=== PATIENT | female | born 1990 | race Hispanic/Latino ===

== ENCOUNTER 2020-12-16 10:34 | Inpatient (IN) | payer MEDICAID ==
[~2020-12-16] VITALS: Ht 165.1 cm; Wt 137.0 kg
[2020-12-18] MEDS ORDERED: LACTATED RINGERS 1000ML 1,000 ML IV SCH (06:00)
[2020-12-18] MEDS ORDERED: CEFAZOLIN SODIUM 1 GM VIAL IVP PRN (06:00)
[2020-12-18 06:24] LABS: HEMATOCRIT 38.3 % (36-48); MEAN CORPUSCULAR HEMOGLOBIN 27.8 pg (27.0-33.0); MEAN CORPUSCULAR HGB CONC 32.6 g/dL (32.0-36.0); MEAN CORPUSCULAR VOLUME 85.3 fL (79-99); RED BLOOD CELL COUNT(AUTO) 4.49 MIL/uL (4.00-5.50); RED CELL DISTRIBUTION WIDTH 13.9 % (11.0-15.5); WHITE BLOOD COUNT (AUTO) 12.7 K/uL (4.8-10.8)
[2020-12-18] MEDS ORDERED: CALDOLOR 800MG+NS 250ML 250 ML IV ONE (07:22)
[2020-12-18] MEDS ORDERED: OXYTOCIN 10 USP UNITS/ML ONE (07:22)
[2020-12-18] MEDS ORDERED: MORPHINE PF 100MG/10ML AMP IV ONE (07:22)
[2020-12-18] MEDS ORDERED: CEFAZOLIN SODIUM 1 GM VIAL IVP ONE (07:44)
[2020-12-18] MEDS ORDERED: PROMETHAZINE HCL 25 MG/ML 1ML AMPULE IM PRN (08:45)
[2020-12-18] MEDS ORDERED: OXYTOCIN-LR 20 UNITS/1000 ML 1,000 ML IV PRN (08:45)
[2020-12-18] MEDS ORDERED: DEXTROSE 5 %-0.45 % NACL 1,000 ML IV PRN (08:45)
[2020-12-18] MEDS ORDERED: 0.9%NACL 10ML VIAL IVP PRN (08:45)
[2020-12-18] MEDS ORDERED: MEPERIDINE-PF 75 MG/ML SYG IM PRN (08:45)
[2020-12-18] MEDS ORDERED: NALOXONE HCL 0.4 MG/1 ML ML IVP PRN ×3 (09:15→09:30)
[2020-12-18] MEDS ORDERED: KETOROLAC 30MG VIAL (30MG/ML) IV PRN (09:30)
[2020-12-18] MEDS ORDERED: ONDANSETRON 4MG INJ IVP PRN (09:30)
[2020-12-18 10:19] LABS: RAPID PLASMA REAGIN NONREACTIVE (NONREACTIVE)
[2020-12-18 10:24] VITALS: BP 106/68
[2020-12-18] MEDS: DiphenhydrAMINE HCL 50 MG/ML VIAL IVP PRN (10:38)
[2020-12-18] MEDS ORDERED: FLU VACC QS2020-21(6MOS UP)/PF 60 MCG/0.5 ML ML IM ONE (14:45)
[2020-12-18] MEDS ORDERED: DIPH,PERTUSS(ACELL),TET VAC/PF 0.5 ML VIAL IM ONE (14:45)
[2020-12-18 16:38] VITALS: BP 109/60
[2020-12-18] MEDS: CALDOLOR 800MG+NS 250ML 250 ML IV SCH (17:55)
[2020-12-18 19:38] VITALS: BP 102/58
[2020-12-19 00:33] VITALS: BP 103/60
[2020-12-19] MEDS: DiphenhydrAMINE HCL 50 MG/ML VIAL IVP PRN (00:41)
[2020-12-19] MEDS: CALDOLOR 800MG+NS 250ML 250 ML IV SCH (02:31)
[2020-12-19 03:52] VITALS: BP 94/58
[2020-12-19 06:38] LABS: HEMATOCRIT 32.3 % (36-48); MEAN CORPUSCULAR HEMOGLOBIN 28.8 pg (27.0-33.0); MEAN CORPUSCULAR HGB CONC 33.7 g/dL (32.0-36.0); MEAN CORPUSCULAR VOLUME 85.4 fL (79-99); RED BLOOD CELL COUNT(AUTO) 3.78 MIL/uL (4.00-5.50); RED CELL DISTRIBUTION WIDTH 13.9 % (11.0-15.5); WHITE BLOOD COUNT (AUTO) 12.9 K/uL (4.8-10.8)
[2020-12-19 07:16] VITALS: BP 108/69
[2020-12-19 08:15] LABS: HEPATITIS Bs ANTIGEN SCREEN P Negative (Negative)
[2020-12-19] MEDS ORDERED: BISACODYL 10 MG SUPP.RECT RC PRN (08:45)
[2020-12-19] MEDS ORDERED: ACETAMINOPHEN 500 MG TABLET PO PRN (08:45)
[2020-12-19] MEDS ORDERED: HYDROCODONE/ACETAMINOPHEN 5/325 MG TAB PO PRN (08:45)
[2020-12-19] MEDS ORDERED: SIMETHICONE 80 MG TAB.CHEW PO PRN (08:45)
[2020-12-19] MEDS ORDERED: LANOLIN 30GM OINTMENT TP PRN (08:45)
[2020-12-19] MEDS ORDERED: ACETAMINOPHEN WITH CODEINE 1 TAB TAB PO PRN (08:45)
[2020-12-19] MEDS ORDERED: DOCUSATE SODIUM 100 MG CAP PO SCH (09:00)
[2020-12-19] MEDS ORDERED: IBUPROFEN 800 MG TAB PO SCH (10:00)
[2020-12-19] MEDS ORDERED: DOCU-116 PO (10:18)
[2020-12-19] MEDS ORDERED: IBUP-2077 PO (10:18)
[2020-12-19] MEDS ORDERED: ACET1TAB25 PO (10:18)
[2020-12-19 11:36] VITALS: BP 104/64
[2020-12-19 16:00] VITALS: BP 106/58
== END 2020-12-19 16:50 | disposition home or self-care (01) | DRG 540 ==
LOC: LDH 12-18 05:47 → WSH 12-18 10:20 → EDSTATUS 12-18 12:00 → UNDODISIN 12-19 11:45
PROVIDERS: ADMIT Obstetrics & Gynecology; ATTEND Obstetrics & Gynecology
PROC: 3E0234Z Introduction of Serum, Toxoid and Vaccine into Muscle, Percutaneous Approach (ICD-10-PCS; 2020-12-18)
PROC: 3E02340 Introduction of Influenza Vaccine into Muscle, Percutaneous Approach (ICD-10-PCS; 2020-12-18)
PROC: 10D00Z1 Extraction of Products of Conception, Low, Open Approach (ICD-10-PCS; principal; 2020-12-18 07:30)
DX: O34.211 Maternal care for low transverse scar from previous cesarean delivery (principal); O99.214 Obesity complicating childbirth; E66.01 Morbid (severe) obesity due to excess calories; K66.0 Peritoneal adhesions (postprocedural) (postinfection); Z20.822 Contact with and (suspected) exposure to COVID-19; Z3A.39 39 weeks gestation of pregnancy; Z37.0 Single live birth; Z23 Encounter for immunization
CPT/HCPCS: 36415; 59510; 85027; 86592; 86701; 86850; 86900; 86901; 87340; 87390; 90715; A4344; G0378; J0690; J1200; J1741; J1885; J2274; J2590; J7120; Q2035; U0003